=== PATIENT | female | born 1970 | race Caucasian/White ===

== ENCOUNTER 2017-07-09 12:42 | Emergency (ER) | payer MEDICARE ==
[2013-09-18 18:01] VITALS: BMI 43.3
[~2017-07-09 12:42] MED LIST: ACETAMINOPHEN500 M1 PO; ALBUTEROL2.5 MG/3 M IH; AMITRIPTYLINE H50 MG PO; BACTRIM DS TABL1 TAB PO; DEPAKOTE250 MG PO; DULCOLAX10 MG/SUPP RC; IMODIUM2 MG; IMODIUM2 MG PO; K-DUR20 MEQ PO; KLONOPIN0.5 MG PO; LEVAQUIN250 MG PO; LOMOTIL TABLET1 TAB PO; LOPRESSOR25 MG PO; LOVENOX40 MG/0.4 SQ; NAPROSYN500 MG PO; NYSTATIN-TRIAMC15 GM TOPICAL; PRAVACHOL20 MG PO; PROTONIX40 MG PO; PROZAC10 MG PO; RIFADIN300 MG PO; SENOKOT-S TABLE1 TAB PO; ZYVOX PO
== END 2017-07-09 15:19 | disposition home or self-care (01) ==
LOC: D.ER 12:42
DX: J20.9 Acute bronchitis, unspecified (principal); J06.9 Acute upper respiratory infection, unspecified

== ENCOUNTER → 2018-03-23 12:34 | Outpatient (CLI) | payer MEDICARE ==
[2013-09-18 18:01] VITALS: BMI 43.3
[~2018-03-23 12:34] MED LIST changes: +BREO ELLIPTA 11 EACH INH; +BRIO; +CYMBALTA60 MG PO; +DESERYL50 M2 PO; +DEXILANT60 MG PO; +IBUPROFEN800 MG PO; +KEPPRA500 MG PO; +KLONOPIN1 MG PO; +LEVAQUIN750 MG PO; +LOMOTIL 2.5-0.1 EAC1 PO; +MYCELEX TROCHE10 MG PO; +SPIRIVA RESPIMAT4 G1; +SPIRIVA18 MCG INH; +VENTOLIN HFA18 GM INH; +ZANAFLEX4 MG PO; +ZOFRAN8 MG PO
[2018-04-04 13:48] VITALS: BMI 43.2
== END | disposition home or self-care (01) ==
LOC: D.RT 12:34
DX: J45.909 Unspecified asthma, uncomplicated (principal); J84.9 Interstitial pulmonary disease, unspecified

== ENCOUNTER 2018-03-23 13:35 | Emergency (ER) | payer MEDICARE ==
[~2018-03-23] VITALS: Ht 165.1 cm; Wt 117.9 kg
[~2018-03-23 13:35] MED LIST changes: -BREO ELLIPTA 11 EACH INH; -BRIO; -CYMBALTA60 MG PO; -DESERYL50 M2 PO; -DEXILANT60 MG PO; -IBUPROFEN800 MG PO; -KEPPRA500 MG PO; -KLONOPIN1 MG PO; -LEVAQUIN750 MG PO; -LOMOTIL 2.5-0.1 EAC1 PO; -MYCELEX TROCHE10 MG PO; -SPIRIVA RESPIMAT4 G1; -SPIRIVA18 MCG INH; -VENTOLIN HFA18 GM INH; -ZANAFLEX4 MG PO; -ZOFRAN8 MG PO
[2018-03-23 13:56] VITALS: BP 160/86; Ht 165.1 cm; Wt 117.9 kg
[2018-03-23] MEDS ORDERED: KEPPRA500 MG PO (14:00)
[2018-03-23 15:02] LABS: BASOPHILS 0.4 % (0-2); EOSINOPHILS 0.3 % (0-7); HEMATOCRIT 34.9 % (36.0-48.0); HEMOGLOBIN 11.6 g/dL (12-16); IMMATURE GRANULOCYTES 0.4 % (0-5); LYMPHOCYTES 25.1 % (15-50); MCH 30.4 pg (26.0-34.0); MCHC 33.2 g/dL (31.0-37.0); MCV 91.4 fL (80.0-100.0); MEAN PLATELET VOLUME 9.7 fL (7.4-10.4); NEUTROPHILS 68.8 % (40-80); PLATELET COUNT 319 10x3/uL (130-400); RBC 3.82 10x6/uL (4.00-5.40); RDW 13.9 % (11.5-14.5)
[2018-03-23 15:34] LABS: ALBUMIN 3.4 g/dL (3.4-5.0); ALKALINE PHOSPHATASE 87 U/L (46-116); ALT (SGPT) 26 U/L (10-68); AMYLASE - SERUM 29 U/L (25-115); BILIRUBIN - TOTAL 0.29 mg/dL (0.2-1.3); CALC OSMOLALITY 282 mosm/kg (275-300); CALCIUM 8.6 mg/dL (8.5-10.1); CARBON DIOXIDE 27.1 mmol/L (21.0-32.0); CHLORIDE - SERUM 105 mmol/L (98-107); CREATININE - SERUM 0.6 mg/dL (0.6-1.3); GLUCOSE 117 mg/dL (74-106); LIPASE 82 U/L (73-393); POTASSIUM - SERUM 3.7 mmol/L (3.5-5.1); SODIUM 141 mmol/L (136-145); UREA NITROGEN 15 mg/dL (7-18); eGFR NON AFRICAN AMERICAN > 90 mL/min (90-120)
[2018-03-23 15:52] LABS: APPEARANCE CLEAR (CLEAR); COLOR YELLOW (YELLOW); SPECIFIC GRAVITY 1.005 (1.005-1.020)
[2018-03-23 15:53] LABS: BACTERIA FEW /hpf (NONE SEEN); BILIRUBIN NEGATIVE (NEGATIVE); EPITHELIAL CELLS 0-5 /hpf (0-5); GLUCOSE NEGATIVE (NEGATIVE); KETONE MODERATE mg/dL (NEGATIVE); NITRITE NEGATIVE (NEGATIVE); PROTEIN TRACE mg/dL (NEGATIVE); RED CELLS - URINE 0-5 /hpf (0-5); UROBILINOGEN NORMAL (NORMAL); WHITE CELLS - URINE 0-5 /hpf (0-5)
[2018-03-23] MEDS ORDERED: ZOFRAN8 MG PO (16:50)
[2018-03-23] MEDS ORDERED: LOMOTIL 2.5-0.1 EAC1 PO (16:50)
== END 2018-03-23 17:31 | disposition home or self-care (01) ==
LOC: D.ER 13:35
PROVIDERS: Family Medicine
DX: A08.4 Viral intestinal infection, unspecified (principal); R51 Headache; G40.909 Epilepsy, unspecified, not intractable, without status epilepticus; K21.9 Gastro-esophageal reflux disease without esophagitis

== ENCOUNTER → 2018-03-28 08:26 | Outpatient (CLI) | payer MEDICARE ==
[2018-03-23 13:56] VITALS: BMI 43.3
[~2018-03-28 08:26] MED LIST changes: +BREO ELLIPTA 11 EACH INH; +BRIO; +CYMBALTA60 MG PO; +DESERYL50 M2 PO; +DEXILANT60 MG PO; +IBUPROFEN800 MG PO; +KEPPRA500 MG PO; +KLONOPIN1 MG PO; +LEVAQUIN750 MG PO; +LOMOTIL 2.5-0.1 EAC1 PO; +MYCELEX TROCHE10 MG PO; +SPIRIVA RESPIMAT4 G1; +SPIRIVA18 MCG INH; +VENTOLIN HFA18 GM INH; +ZANAFLEX4 MG PO; +ZOFRAN8 MG PO
[2018-04-04 13:48] VITALS: BMI 43.2
== END | disposition home or self-care (01) ==
LOC: D.CT 03-23 14:00 → D.MRI 08:26
DX: S83.232A Complex tear of medial meniscus, current injury, left knee, initial encounter (principal); X58.XXXA Exposure to other specified factors, initial encounter; J84.9 Interstitial pulmonary disease, unspecified

== ENCOUNTER 2018-04-02 18:29 | Inpatient (IN) | payer MEDICARE ==
[~2018-04-02] VITALS: Ht 165.1 cm; Wt 117.9 kg
--- NOTE | ~2018-04-02 | MORECARE ---
CASE MANAGEMENT DISCHARGE SUMMARY PATIENT: JETT WOLFF UNIT: [id number] ADM DATE: 04/02/18 AGE: 47 : 74 SEX: F ROOM/BED: D.2229 AUTHOR: ARANZA,DOC PHYSICIAN: REFERRING PHYSICIAN: ILDEFONSO BRADFORD MD DATE OF SERVICE: 04/07/18 Discharge Plan Patient Name: JETT WOLFF Facility: [facility]:[place] : 1970 Planned Disposition: Home Anticipated Discharge Date: Discharge Date: Expected LOS: Initial Reviewer: [email or web address] Initial Review Date: 04/05/2018 Generated: 04/07/18 1:10 pm Comments DCP- Discharge Planning Updated by [email or web address]: Jaky Silva on 04/07/18 11:[address] Patient Name: JETT WOLFF Encounter No: [id number] : 1970 Primary Insurance: MEDICARE A & B Anticipated DC Date: Planned Disposition: Home External Planned Provider: : DCP follow-up note: Patient in agreement with discharge plan. States her she will call family for a ride home, states probably her sister will take her home. Declines need for home health. She has been on room air oxygen overnight. No needs identified. No changes to plan. Case management will follow and assist as needed. Jaky Silva DCP- Discharge Planning Updated by [email or web address]: Jaky Silva on 04/05/18 9:[address] Patient Name: JETT WOLFF Admission Status: ER Accout number: [id number] Admission Date: 04-02-2018 : 1970 Admission Diagnosis: Attending: ILDEFONSO BRADFORD Current LOS: 3 Anticipated DC Date: Planned Disposition: Home Primary Insurance: MEDICARE A & B Discharge Planning Comments: CM met with patient, she is alone in the room. States she lives alone. States she is independent with all ADL's. States she does not drive, her sister or mother drives her where she needs to go. States either sister or mother will take her home on discharge. I discussed availability of DME and HHS and she declines need for either one at this time. CM will continue to follow and assist with discharge planning/needs. Medical Records Administrator: Jaky Silva DCPIA - Discharge Planning Initial Assessment Updated by [email or web address]: Jaky Silva on 04/05/18 10:24 am * Is the patient Alert and Oriented? Yes * How many steps to enter\exit or inside your home? * PCP Dr. Interiano * Pharmacy [facility] * Preadmission Environment Home Alone * ADLs Independent * Equipment None * List name and contact numbers for known caregivers / representatives who currently or will assist patient after discharge: Gisel - mother - [phone] Xochilt - sister - unknown number * Verbal permission to speak to the caregivers and representatives has been obtained from the patient. Yes * Community resources currently utilized None * Additional services required to return to the preadmission environment? No * Can the patient safely return to the preadmission environment? Yes * Has this patient been hospitalized within the prior 30 days at any hospital? No Last DP export: 04/05/18 9:29 a Patient Name: JETT WOLFF Page [id number] at 1210 All edits/amendments must be made on the electronic document DICTATION DATE: 04/07/18 1210 MICROSYSTEMS ENGINEER: WADE 04/07/18 1210 RPT#: [id number] DC DATE: STATUS: ADM IN [facility] [address] [place] [address] END OF REPORT
--- NOTE | ~2018-04-02 | MORECARE ---
CASE MANAGEMENT DISCHARGE SUMMARY PATIENT: JETT WOLFF UNIT: [id number] ADM DATE: 04/02/18 AGE: 47 : 74 SEX: F ROOM/BED: D.2229 AUTHOR: ARANZA,DOC PHYSICIAN: REFERRING PHYSICIAN: ILDEFONSO BRADFORD MD DATE OF SERVICE: 04/05/18 Discharge Plan Patient Name: JETT WOLFF Facility: [facility]:[place] : 1970 Planned Disposition: Home Anticipated Discharge Date: Discharge Date: Expected LOS: Initial Reviewer: [email or web address] Initial Review Date: 04/05/2018 Generated: 04/05/18 11:29 am Comments DCP- Discharge Planning Updated by [email or web address]: Jaky Silva on 04/05/18 9:[address] Patient Name: JETT WOLFF Admission Status: ER Accout number: [id number] Admission Date: 04-02-2018 : 1970 Admission Diagnosis: Attending: ILDEFONSO BRADFORD Current LOS: 3 Anticipated DC Date: Planned Disposition: Home Primary Insurance: MEDICARE A & B Discharge Planning Comments: CM met with patient, she is alone in the room. States she lives alone. States she is independent with all ADL's. States she does not drive, her sister or mother drives her where she needs to go. States either sister or mother will take her home on discharge. I discussed availability of DME and HHS and she declines need for either one at this time. CM will continue to follow and assist with discharge planning/needs. Chronometer Tester: Jaky Silva DCPIA - Discharge Planning Initial Assessment Updated by [email or web address]: Jaky Silva on 04/05/18 10:24 am * Is the patient Alert and Oriented? Yes * How many steps to enter\exit or inside your home? * PCP Dr. Interiano * Pharmacy [facility] * Preadmission Environment Home Alone * ADLs Independent * Equipment None * List name and contact numbers for known caregivers / representatives who currently or will assist patient after discharge: Gisel - mother - [phone] Xochilt - sister - unknown number * Verbal permission to speak to the caregivers and representatives has been obtained from the patient. Yes * Community resources currently utilized None * Additional services required to return to the preadmission environment? No * Can the patient safely return to the preadmission environment? Yes * Has this patient been hospitalized within the prior 30 days at any hospital? No Patient Name: JETT WOLFF Page [id number] at 1029 All edits/amendments must be made on the electronic document DICTATION DATE: 04/05/18 1028 SERVICE BAR CASHIER: WADE 04/05/18 1028 RPT#: [id number] DC DATE: STATUS: ADM IN [facility] [address] [place] [address] END OF REPORT
--- NOTE | ~2018-04-02 | MORECARE ---
CASE MANAGEMENT DISCHARGE SUMMARY PATIENT: JETT WOLFF UNIT: [id number] ADM DATE: 04/02/18 AGE: 47 : 74 SEX: F ROOM/BED: D.2229 AUTHOR: ARANZADOC PHYSICIAN: REFERRING PHYSICIAN: ILDEFONSO BRADFORD MD DATE OF SERVICE: 04/08/18 Discharge Plan Patient Name: JETT WOLFF Facility: [facility]:[place] : 1970 Planned Disposition: Home Anticipated Discharge Date: Discharge Date: 04/07/2018 Expected LOS: 0 Initial Reviewer: [email or web address] Initial Review Date: 04/05/2018 Generated: 04/08/18 11:21 am Comments DCP- Discharge Planning Updated by [email or web address]: Jaky Silva on 04/07/18 11:[address] Patient Name: JETT WOLFF Encounter No: [id number] : 1970 Primary Insurance: MEDICARE A & B Anticipated DC Date: Planned Disposition: Home External Planned Provider: : DCP follow-up note: Patient in agreement with discharge plan. States her she will call family for a ride home, states probably her sister will take her home. Declines need for home health. She has been on room air oxygen overnight. No needs identified. No changes to plan. Case management will follow and assist as needed. Jaky Silva DCP- Discharge Planning Updated by [email or web address]: Jaky Silva on 04/05/18 9:[address] Patient Name: JETT WOLFF Admission Status: ER Accout number: [id number] Admission Date: 04-02-2018 : 1970 Admission Diagnosis: Attending: ILDEFONSO BRADFORD Current LOS: 3 Anticipated DC Date: Planned Disposition: Home Primary Insurance: MEDICARE A & B Discharge Planning Comments: CM met with patient, she is alone in the room. States she lives alone. States she is independent with all ADL's. States she does not drive, her sister or mother drives her where she needs to go. States either sister or mother will take her home on discharge. I discussed availability of DME and HHS and she declines need for either one at this time. CM will continue to follow and assist with discharge planning/needs. [place] Sander: Jaky Garciaell DCPIA - Discharge Planning Initial Assessment Updated by [email or web address]: Jaky Silva on 04/05/18 10:24 am * Is the patient Alert and Oriented? Yes * How many steps to enter\exit or inside your home? 120 * PCP Dr. Interiano * Pharmacy [place] * Preadmission Environment Home Alone * ADLs Independent * Equipment None * List name and contact numbers for known caregivers / representatives who currently or will assist patient after discharge: Gisel - mother - [phone] Xochilt - sister - unknown number * Verbal permission to speak to the caregivers and representatives has been obtained from the patient. Yes * Community resources currently utilized None * Additional services required to return to the preadmission environment? No * Can the patient safely return to the preadmission environment? Yes * Has this patient been hospitalized within the prior 30 days at any hospital? No Last DP export: 04/07/18 11:10 a Patient Name: JETT WOLFF Page [id number] at 1021 All edits/amendments must be made on the electronic document DICTATION DATE: 04/08/18 1020 MEAT STOCKER: WADE 04/08/18 1020 RPT#: [id number] SD DATE:04/07/18 STATUS: DIS IN [facility] [address] [place] [address] END OF REPORT
[~2018-04-02 18:29] MED LIST changes: -BREO ELLIPTA 11 EACH INH; -BRIO; -CYMBALTA60 MG PO; -DESERYL50 M2 PO; -DEXILANT60 MG PO; -IBUPROFEN800 MG PO; -KLONOPIN1 MG PO; -LEVAQUIN750 MG PO; -MYCELEX TROCHE10 MG PO; -SPIRIVA RESPIMAT4 G1; -SPIRIVA18 MCG INH; -VENTOLIN HFA18 GM INH; -ZANAFLEX4 MG PO
[2018-04-02] MEDS ORDERED: BRIO (18:35)
[2018-04-02] MEDS ORDERED: SPIRIVA RESPIMAT4 G1 (18:35)
[2018-04-02 19:14] LABS: BASOPHILS 0.2 % (0-2); EOSINOPHILS 0.2 % (0-7); HEMATOCRIT 31.9 % (36.0-48.0); HEMOGLOBIN 10.5 g/dL (12-16); IMMATURE GRANULOCYTES 0.4 % (0-5); LYMPHOCYTES 7.6 % (15-50); MCH 30.2 pg (26.0-34.0); MCHC 32.9 g/dL (31.0-37.0); MCV 91.7 fL (80.0-100.0); MEAN PLATELET VOLUME 9.9 fL (7.4-10.4); MONOCYTES 5.3 % (2-11); NEUTROPHILS 86.3 % (40-80); PLATELET COUNT 256 10x3/uL (130-400); RBC 3.48 10x6/uL (4.00-5.40); WBC 5.5 10x3/uL (4.8-10.8)
[2018-04-02 19:35] LABS: ALBUMIN 3.1 g/dL (3.4-5.0); ALKALINE PHOSPHATASE 108 U/L (46-116); ALT (SGPT) 41 U/L (10-68); BILIRUBIN - TOTAL 0.33 mg/dL (0.2-1.3); CALC OSMOLALITY 277 mosm/kg (275-300); CALCIUM 8.2 mg/dL (8.5-10.1); CARBON DIOXIDE 29.4 mmol/L (21.0-32.0); CHLORIDE - SERUM 101 mmol/L (98-107); CREATININE - SERUM 0.8 mg/dL (0.6-1.3); GLUCOSE 108 mg/dL (74-106); POTASSIUM - SERUM 3.5 mmol/L (3.5-5.1); PROTEIN - SERUM 7.1 g/dL (6.4-8.2); SODIUM 140 mmol/L (136-145); UREA NITROGEN 8 mg/dL (7-18); eGFR NON AFRICAN AMERICAN 82 mL/min (90-120)
[2018-04-02 21:24] VITALS: BP 153/82
[2018-04-02 21:47] VITALS: BP 153/82; BMI 43.3
[2018-04-03] MEDS ORDERED: KEPPRA500 MG PO (02:38)
[2018-04-03] MEDS ORDERED: LOPRESSOR25 MG PO (02:39)
[2018-04-03] MEDS ORDERED: PRAVACHOL20 MG PO (02:40)
[2018-04-03] MEDS ORDERED: DESERYL50 M2 PO (02:40)
[2018-04-03] MEDS ORDERED: DEXILANT60 MG PO (02:41)
[2018-04-03] MEDS ORDERED: ZANAFLEX4 MG PO (02:41)
[2018-04-03] MEDS ORDERED: CYMBALTA60 MG PO (02:41)
[2018-04-03] MEDS ORDERED: KLONOPIN1 MG PO (02:42)
[2018-04-03] MEDS ORDERED: BREO ELLIPTA 11 EACH INH (02:44)
[2018-04-03] MEDS ORDERED: SPIRIVA18 MCG INH (02:45)
[2018-04-03] MEDS ORDERED: IBUPROFEN800 MG PO (02:46)
[2018-04-03] MEDS ORDERED: VENTOLIN HFA18 GM INH (02:46)
[2018-04-03] MEDS ORDERED: MYCELEX TROCHE10 MG PO (02:47)
[2018-04-03 05:03] VITALS: BP 129/70
[2018-04-03 05:49] LABS: BASOPHILS 0.1 % (0-2); EOSINOPHILS 0 % (0-7); HEMATOCRIT 32.8 % (36.0-48.0); HEMOGLOBIN 10.6 g/dL (12-16); IMMATURE GRANULOCYTES 0.4 % (0-5); LYMPHOCYTES 7.5 % (15-50); MCH 29.8 pg (26.0-34.0); MCHC 32.3 g/dL (31.0-37.0); MCV 92.1 fL (80.0-100.0); MEAN PLATELET VOLUME 10.3 fL (7.4-10.4); MONOCYTES 1.9 % (2-11); NEUTROPHILS 90.1 % (40-80); PLATELET COUNT 277 10x3/uL (130-400); RBC 3.56 10x6/uL (4.00-5.40); RDW 15.1 % (11.5-14.5)
[2018-04-03 05:55] LABS: CREATININE - SERUM 0.9 mg/dL (0.6-1.3)
[2018-04-03 08:43] VITALS: BP 105/57
[2018-04-03 12:38] VITALS: BP 138/75
[2018-04-03 16:50] VITALS: BP 147/84
[2018-04-03 20:47] VITALS: BP 145/85
[2018-04-04] VITALS (7 sets, daily range): BP systolic 106–143; BP diastolic 43–92; Ht 165.1 cm; Wt 117.9 kg
[2018-04-04 05:23] LABS: BASOPHILS 0 % (0-2); EOSINOPHILS 0 % (0-7); HEMATOCRIT 29.9 % (36.0-48.0); HEMOGLOBIN 9.7 g/dL (12-16); IMMATURE GRANULOCYTES 0.4 % (0-5); LYMPHOCYTES 23.1 % (15-50); MCH 30.2 pg (26.0-34.0); MCHC 32.4 g/dL (31.0-37.0); MCV 93.1 fL (80.0-100.0); MEAN PLATELET VOLUME 9.8 fL (7.4-10.4); MONOCYTES 6.2 % (2-11); NEUTROPHILS 70.3 % (40-80); PLATELET COUNT 258 10x3/uL (130-400); RBC 3.21 10x6/uL (4.00-5.40); RDW 15.8 % (11.5-14.5)
[2018-04-04 05:33] LABS: WBC 5.2 10x3/uL (4.8-10.8)
[2018-04-04 06:37] LABS: ALBUMIN 2.6 g/dL (3.4-5.0); ALKALINE PHOSPHATASE 88 U/L (46-116); ALT (SGPT) 33 U/L (10-68); BILIRUBIN - TOTAL 0.14 mg/dL (0.2-1.3); CALCIUM 7.6 mg/dL (8.5-10.1); CARBON DIOXIDE 27.2 mmol/L (21.0-32.0); CHLORIDE - SERUM 104 mmol/L (98-107); CREATININE - SERUM 0.7 mg/dL (0.6-1.3); GLUCOSE 136 mg/dL (74-106); PROTEIN - SERUM 6.1 g/dL (6.4-8.2); SODIUM 142 mmol/L (136-145); eGFR NON AFRICAN AMERICAN > 90 mL/min (90-120)
[2018-04-04 06:38] LABS: CALC OSMOLALITY 284 mosm/kg (275-300); UREA NITROGEN 12 mg/dL (7-18)
[2018-04-04 15:25] LABS: APPEARANCE CLEAR (CLEAR); BILIRUBIN NEGATIVE (NEGATIVE); COLOR YELLOW (YELLOW); GLUCOSE NEGATIVE (NEGATIVE); KETONE NEGATIVE (NEGATIVE); NITRITE NEGATIVE (NEGATIVE); PROTEIN NEGATIVE (NEGATIVE); SPECIFIC GRAVITY 1.015 (1.005-1.020); UROBILINOGEN NORMAL (NORMAL)
[2018-04-05 00:52] VITALS: BP 145/79
[2018-04-05 05:57] VITALS: BP 139/65
[2018-04-05 06:19] LABS: BASOPHILS 0.2 % (0-2); EOSINOPHILS 0.2 % (0-7); HEMATOCRIT 31.5 % (36.0-48.0); HEMOGLOBIN 9.9 g/dL (12-16); IMMATURE GRANULOCYTES 0.2 % (0-5); LYMPHOCYTES 32.7 % (15-50); MCH 29.8 pg (26.0-34.0); MCHC 31.4 g/dL (31.0-37.0); MCV 94.9 fL (80.0-100.0); MEAN PLATELET VOLUME 10.3 fL (7.4-10.4); MONOCYTES 9.9 % (2-11); NEUTROPHILS 56.8 % (40-80); PLATELET COUNT 254 10x3/uL (130-400); RBC 3.32 10x6/uL (4.00-5.40); RDW 15.7 % (11.5-14.5); WBC 4.1 10x3/uL (4.8-10.8)
[2018-04-05 07:08] LABS: ALBUMIN 2.5 g/dL (3.4-5.0); ALKALINE PHOSPHATASE 95 U/L (46-116); ALT (SGPT) 32 U/L (10-68); BILIRUBIN - TOTAL 0.32 mg/dL (0.2-1.3); CALCIUM 7.7 mg/dL (8.5-10.1); CARBON DIOXIDE 26.8 mmol/L (21.0-32.0); CHLORIDE - SERUM 105 mmol/L (98-107); CREATININE - SERUM 0.6 mg/dL (0.6-1.3); GLUCOSE 97 mg/dL (74-106); POTASSIUM - SERUM 4.1 mmol/L (3.5-5.1); PROTEIN - SERUM 5.9 g/dL (6.4-8.2); SODIUM 141 mmol/L (136-145); eGFR NON AFRICAN AMERICAN > 90 mL/min (90-120)
[2018-04-05 07:09] LABS: CALC OSMOLALITY 277 mosm/kg (275-300); UREA NITROGEN 5 mg/dL (7-18)
[2018-04-05 08:20] VITALS: BP 129/82
[2018-04-05 12:25] VITALS: BP 138/93
[2018-04-05 21:31] VITALS: BP 181/90
[2018-04-06 04:49] LABS: HEMATOCRIT 30.7 % (36.0-48.0); HEMOGLOBIN 9.9 g/dL (12-16); MCH 30.3 pg (26.0-34.0); MCHC 32.2 g/dL (31.0-37.0); MCV 93.9 fL (80.0-100.0); MEAN PLATELET VOLUME 9.8 fL (7.4-10.4); PLATELET COUNT 256 10x3/uL (130-400); RBC 3.27 10x6/uL (4.00-5.40); RDW 15.3 % (11.5-14.5); WBC 3.2 10x3/uL (4.8-10.8)
[2018-04-06 05:05] LABS: ALBUMIN 2.3 g/dL (3.4-5.0); ALKALINE PHOSPHATASE 101 U/L (46-116); ALT (SGPT) 33 U/L (10-68); BILIRUBIN - TOTAL 0.36 mg/dL (0.2-1.3); CALC OSMOLALITY 284 mosm/kg (275-300); CARBON DIOXIDE 29.9 mmol/L (21.0-32.0); CHLORIDE - SERUM 106 mmol/L (98-107); CREATININE - SERUM 0.7 mg/dL (0.6-1.3); GLUCOSE 100 mg/dL (74-106); POTASSIUM - SERUM 3.7 mmol/L (3.5-5.1); PROTEIN - SERUM 6.1 g/dL (6.4-8.2); SODIUM 144 mmol/L (136-145); UREA NITROGEN 6 mg/dL (7-18); eGFR NON AFRICAN AMERICAN > 90 mL/min (90-120)
[2018-04-06 05:22] LABS: BASOPHILS 1 % (0-2); LYMPHOCYTES 57 % (15-50); MONOCYTES 3 % (2-11); NEUTROPHILS 37 % (40-80); PLATELET ESTIMATE NORMAL
[2018-04-06 06:19] VITALS: BP 140/84
[2018-04-06 09:08] VITALS: BP 142/77
[2018-04-06 12:13] VITALS: BP 136/74
[2018-04-06 17:07] VITALS: BP 130/63
[2018-04-06 20:45] VITALS: BP 127/65
[2018-04-07 01:09] VITALS: BP 134/64
[2018-04-07 04:49] VITALS: BP 145/70
[2018-04-07 04:54] LABS: BASOPHILS 0.6 % (0-2); EOSINOPHILS 0.6 % (0-7); HEMATOCRIT 31.3 % (36.0-48.0); HEMOGLOBIN 9.9 g/dL (12-16); IMMATURE GRANULOCYTES 0.3 % (0-5); LYMPHOCYTES 56.1 % (15-50); MCH 29.6 pg (26.0-34.0); MCHC 31.6 g/dL (31.0-37.0); MCV 93.4 fL (80.0-100.0); MEAN PLATELET VOLUME 9.8 fL (7.4-10.4); MONOCYTES 11.6 % (2-11); NEUTROPHILS 30.8 % (40-80); PLATELET COUNT 271 10x3/uL (130-400); RBC 3.35 10x6/uL (4.00-5.40); RDW 14.8 % (11.5-14.5); WBC 3.2 10x3/uL (4.8-10.8)
[2018-04-07 05:21] LABS: ALBUMIN 2.4 g/dL (3.4-5.0); ALKALINE PHOSPHATASE 94 U/L (46-116); ALT (SGPT) 32 U/L (10-68); BILIRUBIN - TOTAL 0.34 mg/dL (0.2-1.3); CALCIUM 8.4 mg/dL (8.5-10.1); CARBON DIOXIDE 31.7 mmol/L (21.0-32.0); CHLORIDE - SERUM 104 mmol/L (98-107); CREATININE - SERUM 0.6 mg/dL (0.6-1.3); GLUCOSE 100 mg/dL (74-106); POTASSIUM - SERUM 3.5 mmol/L (3.5-5.1); PROTEIN - SERUM 6.3 g/dL (6.4-8.2); SODIUM 141 mmol/L (136-145); eGFR NON AFRICAN AMERICAN > 90 mL/min (90-120)
[2018-04-07 05:25] LABS: CALC OSMOLALITY 278 mosm/kg (275-300); UREA NITROGEN 8 mg/dL (7-18)
[2018-04-07 08:33] VITALS: BP 157/94
[2018-04-07] MEDS ORDERED: LEVAQUIN750 MG PO (11:49)
[2018-04-07 14:35] VITALS: BP 114/62
== END 2018-04-07 14:00 | disposition home or self-care (01) | DRG 194 ==
LOC: D.ER 18:29 → D.MS 20:12
PROVIDERS: Family Medicine; Internal Medicine Nephrology
DX: J09.X1 Influenza due to identified novel influenza A virus with pneumonia (principal); Z68.41 Body mass index [BMI] 40.0-44.9, adult; J12.9 Viral pneumonia, unspecified; J11.00 Influenza due to unidentified influenza virus with unspecified type of pneumonia; G40.909 Epilepsy, unspecified, not intractable, without status epilepticus; E87.6 Hypokalemia; D64.9 Anemia, unspecified; E66.01 Morbid (severe) obesity due to excess calories; K21.9 Gastro-esophageal reflux disease without esophagitis; F32.9 Major depressive disorder, single episode, unspecified

== ENCOUNTER → 2018-06-02 07:19 | Day surgery (SDC) | payer MEDICARE ==
[2018-06-01 09:17] LABS: HEMATOCRIT 41.2 % (36.0-48.0); HEMOGLOBIN 13.4 g/dL (12-16); MCH 30.3 pg (26.0-34.0); MCHC 32.5 g/dL (31.0-37.0); MCV 93.2 fL (80.0-100.0); MEAN PLATELET VOLUME 9.5 fL (7.4-10.4); RBC 4.42 10x6/uL (4.00-5.40); RDW 14.5 % (11.5-14.5); WBC 5.3 10x3/uL (4.8-10.8)
[2018-06-01 09:27] LABS: ANION GAP 11.7 mmol/L (8-16); CALCIUM 8.8 mg/dL (8.5-10.1); CARBON DIOXIDE 30.5 mmol/L (21.0-32.0); CREATININE - SERUM 0.9 mg/dL (0.6-1.3); POTASSIUM - SERUM 4.2 mmol/L (3.5-5.1)
[~2018-06-02] VITALS: Ht 165.1 cm; Wt 119.7 kg
[~2018-06-02 07:19] MED LIST changes: +BREO ELLIPTA 11 EACH INH; +BRIO; +CYMBALTA60 MG PO; +DESERYL50 M2 PO; +DEXILANT60 MG PO; +HYDROCODON-ACE1 EA10 PO; +IBUPROFEN800 MG PO; +KLONOPIN1 MG PO; +LEVAQUIN750 MG PO; +MYCELEX TROCHE10 MG PO; +SPIRIVA RESPIMAT4 G1; +SPIRIVA18 MCG INH; +VENTOLIN HFA18 GM INH; +ZANAFLEX4 MG PO
[2018-06-02 07:48] VITALS: BP 139/77; Ht 165.1 cm; Wt 119.7 kg
--- NOTE | 2018-06-02 12:06 | OP ---
PATIENT NAME: JETT WOLFF MEDICAL RECORD: [id number] :[birth year] LOCATION:[facility] ADMISSION DATE: SURGEON: GLO SCHMIDT MD DATE OF OPERATION: 06/02/2018 PREOPERATIVE DIAGNOSIS: Patellofemoral syndrome. POSTOPERATIVE DIAGNOSIS: Patellofemoral syndrome. PROCEDURES: Left knee arthroscopy with arthroscopic lateral release. SURGEON: Glo Schmidt MD ANESTHESIA: General. INTRAOPERATIVE COMPLICATIONS: None. 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 OPERATIVE SUMMARY IN DETAIL: After obtaining the appropriate preoperative orthopedic surgery consent as well as anesthetic consultation, evaluation, and clearance the patient was brought to the operating room and placed on the table in supine position. After general laryngeal mask airway was administered, tourniquet was placed on the proximal aspect of the left lower extremity. Left lower extremity was then prepped and draped in routine sterile fashion. The leg was elevated and exsanguinated, and tourniquet inflated to 350 mmHg. Routine inferolateral portal was established followed by superomedial portal and inferomedial portal. Diagnostic arthroscopy did reveal the patient to have patellofemoral syndrome. Fortunately, the weightbearing surface of the condyles were pristine as were the medial and lateral menisci, ACL. The trochlea, more laterally than medially, had chondromalacia. Gentle debridement of the trochlea was done. This was followed by using the Arthrex hook tip [place] system to release the lateral retinaculum from just below the vastus lateralis to the inferolateral portal. Having completed this, the knee was insufflated with 30 mL of 0.25% Marcaine with epinephrine and 40 mg of Depo-Medrol. Arthroscopy portals were closed in routine interrupted fashion using 4-0 Prolene. Sterile dressings were applied. Tourniquet was deflated. The patient was awakened and taken to the recovery room in stable condition. All final needle and sponge counts were correct. TRANSINT:[id number] Voice Confirmation ID: [id number] DOCUMENT ID: [id number] GLO SCHMIDT MD at 1206 CC: [id number] DICTATION DATE: 06/02/18 0957 FIELD SERVICE SPECIALIST: 06/02/18 1035 [facility] [address] [facility] [place], [facility]
== END | disposition home or self-care (01) ==
LOC: D.OPS 07:19 → D.PAN 10:00
PROVIDERS: Anesthesiology
DX: M22.2X2 Patellofemoral disorders, left knee (principal); J45.909 Unspecified asthma, uncomplicated; I49.9 Cardiac arrhythmia, unspecified; K21.9 Gastro-esophageal reflux disease without esophagitis; M19.90 Unspecified osteoarthritis, unspecified site; E66.01 Morbid (severe) obesity due to excess calories; Z68.41 Body mass index [BMI] 40.0-44.9, adult; Z86.14 Personal history of Methicillin resistant Staphylococcus aureus infection; E78.00 Pure hypercholesterolemia, unspecified; F41.0 Panic disorder [episodic paroxysmal anxiety]; G40.209 Localization-related (focal) (partial) symptomatic epilepsy and epileptic syndromes with complex partial seizures, not intractable, without status epilepticus; G47.00 Insomnia, unspecified; Z88.1 Allergy status to other antibiotic agents; Z88.8 Allergy status to other drugs, medicaments and biological substances; Z79.1 Long term (current) use of non-steroidal anti-inflammatories (NSAID); Z79.899 Other long term (current) drug therapy; Z01.812 Encounter for preprocedural laboratory examination

== ENCOUNTER 2018-09-19 20:34 | Emergency (ER) | payer MEDICARE ==
[~2018-09-19] VITALS: Ht 165.1 cm; Wt 120.0 kg
[2018-09-19 20:39] VITALS: Ht 165.1 cm; Wt 120.0 kg
[2018-09-19 21:36] LABS: BASOPHILS 0.2 % (0-2); EOSINOPHILS 0.4 % (0-7); HEMATOCRIT 35.2 % (36.0-48.0); HEMOGLOBIN 11.5 g/dL (12-16); IMMATURE GRANULOCYTES 0.3 % (0-5); MCH 31.1 pg (26.0-34.0); MCHC 32.7 g/dL (31.0-37.0); MCV 95.1 fL (80.0-100.0); MEAN PLATELET VOLUME 9.7 fL (7.4-10.4); NEUTROPHILS 77.1 % (40-80); PLATELET COUNT 329 10x3/uL (130-400); RDW 14.2 % (11.5-14.5); WBC 10.7 10x3/uL (4.8-10.8)
[2018-09-19 21:44] LABS: APTT 25.2 SECONDS (22.8-39.4); INR 0.94 (0.85-1.17); PROTIME 12.1 SECONDS (11.6-15.0)
[2018-09-19 21:50] LABS: ALBUMIN 3.1 g/dL (3.4-5.0); ALKALINE PHOSPHATASE 69 U/L (46-116); ALT (SGPT) 24 U/L (10-68); BILIRUBIN - TOTAL 0.23 mg/dL (0.2-1.3); CALC OSMOLALITY 280 mosm/kg (275-300); CALCIUM 8.2 mg/dL (8.5-10.1); CARBON DIOXIDE 29.5 mmol/L (21.0-32.0); CHLORIDE - SERUM 105 mmol/L (98-107); CREATININE - SERUM 0.7 mg/dL (0.6-1.3); GLUCOSE 105 mg/dL (74-106); POTASSIUM - SERUM 3.9 mmol/L (3.5-5.1); PROTEIN - SERUM 6.7 g/dL (6.4-8.2); SODIUM 141 mmol/L (136-145); UREA NITROGEN 13 mg/dL (7-18); eGFR NON AFRICAN AMERICAN > 90 mL/min (90-120)
[2018-09-19 23:17] VITALS: BP 146/87
== END 2018-09-19 23:19 | disposition home or self-care (01) ==
LOC: D.ER 20:34
PROVIDERS: Family Medicine
DX: G43.909 Migraine, unspecified, not intractable, without status migrainosus (principal)

== ENCOUNTER → 2018-10-03 09:31 | Outpatient (CLI) | payer MEDICARE ==
[2018-09-19 20:39] VITALS: BMI 44.0
== END | disposition home or self-care (01) ==
LOC: D.MRI 09-23 08:30
PROVIDERS: ATTEND Clinical Nurse Specialist Family Health
DX: M25.561 Pain in right knee (principal)

== ENCOUNTER → 2018-11-17 05:00 | Day surgery (SDC) | payer MEDICARE ==
[2018-11-15 09:47] LABS: HEMATOCRIT 35.6 % (36.0-48.0); HEMOGLOBIN 11.6 g/dL (12-16); MCH 31.1 pg (26.0-34.0); MCHC 32.6 g/dL (31.0-37.0); MCV 95.4 fL (80.0-100.0); MEAN PLATELET VOLUME 9.1 fL (7.4-10.4); RBC 3.73 10x6/uL (4.00-5.40); RDW 13.8 % (11.5-14.5); WBC 7.4 10x3/uL (4.8-10.8)
[2018-11-15 09:57] LABS: CALC OSMOLALITY 282 mosm/kg (275-300); CALCIUM 8.3 mg/dL (8.5-10.1); CARBON DIOXIDE 32.3 mmol/L (21.0-32.0); CHLORIDE - SERUM 103 mmol/L (98-107); CREATININE - SERUM 0.7 mg/dL (0.6-1.3); GLUCOSE 123 mg/dL (74-106); POTASSIUM - SERUM 3.7 mmol/L (3.5-5.1); SODIUM 141 mmol/L (136-145); UREA NITROGEN 16 mg/dL (7-18); eGFR NON AFRICAN AMERICAN > 90 mL/min (90-120)
[~2018-11-17] VITALS: Ht 165.1 cm; Wt 113.4 kg
[~2018-11-17 05:00] MED LIST changes: +FLUTICASONE PRO16 GM NASAL; +REXULTI1 MG PO
[2018-11-17 06:20] VITALS: BP 169/97; Ht 165.1 cm; Wt 113.4 kg
--- NOTE | 2018-11-17 10:39 | OP ---
PATIENT NAME: JETT WOLFF MEDICAL RECORD: [id number] :[birth year] LOCATION:[facility] ADMISSION DATE: SURGEON: GLO SCHMIDT MD DATE OF OPERATION: 11/17/2018 PREOPERATIVE DIAGNOSIS: Severe patellofemoral syndrome. POSTOPERATIVE DIAGNOSIS: Severe patellofemoral syndrome. PROCEDURE: Arthroscopic lateral release of the right knee. SURGEON: Glo Schmidt MD. CAR DISPATCHER: Miguel Angel Carbajal. INTRAOPERATIVE COMPLICATIONS: None. SUMMARY OF PATHOLOGIC FINDINGS: The patient was indeed found to have severe patellofemoral disorder. Medial meniscus was in overall good condition without evidence of tearing as thought might be seen on the MRI; however, it was not. OPERATIVE SUMMARY IN DETAIL: After obtaining the appropriate preoperative orthopedic surgery consent as well as anesthetic consultation, evaluation and clearance, the patient was brought to the operating room and placed on the operating table in supine position. After adequate general laryngeal mask airway was administered, tourniquet was placed about the proximal aspect of the right lower extremity. Right lower extremity was then prepped and draped in routine sterile fashion. The leg was elevated and exsanguinated, tourniquet was inflated to 350 mmHg. Routine inferolateral port was established followed by superior medial portal and inferomedial portal. Diagnostic arthroscopy was performed. Medial menisci were in overall good condition as was the lateral menisci. In fact, the chondral surfaces were well except for the lateral facet of patella that had grade I and II chondromalacia without substantial kissing lesion on the lateral trochlear groove. Having completed the diagnostic arthroscopy, the Arthrex hook tip ablation system was put in and a lateral release was performed from just below the vastus lateralis to the inferior lateral portal, resulting in excellent lateral release. Having completed this, the knee was insufflated with 30 cc of 0.25% Marcaine with epinephrine. Arthroscopy portals were closed in routine interrupted fashion using 4-0 Prolene. Sterile dressings were applied. The patient was awakened and taken to recovery room in stable condition after the tourniquet was deflated. All final needle and sponge counts were correct. TRANSINT:[id number] Voice Confirmation ID: [id number] DOCUMENT ID: [id number] GLO SCHMIDT MD at 1039 CC: [id number] DICTATION DATE: 11/17/1848 INTERNET MERCHANT: 11/17/18 0908 REG [facility] [address] [place] [address]
--- NOTE | 2018-11-17 13:41 | NUR ---
1100. ALL DC CRITERIA MET. DC'D HOME. TAKEN OUT VIA W/C AND ASSISTED TO CAR WITH FAMILY. ADVISED TO CALL OR COME BACK IF ANY PROBLEM.
== END | disposition home or self-care (01) ==
LOC: D.OPS 05:00 → D.PAN 11:00
PROVIDERS: Anesthesiology; ATTEND Orthopaedic Surgery
DX: M22.2X1 Patellofemoral disorders, right knee (principal); Z01.812 Encounter for preprocedural laboratory examination

== ENCOUNTER 2018-11-18 16:15 | Emergency (ER) | payer MEDICARE ==
[~2018-11-18] VITALS: Ht 165.1 cm; Wt 118.2 kg
[2018-11-18 16:16] VITALS: Ht 165.1 cm; Wt 118.2 kg
[2018-11-18 17:46] VITALS: BP 127/79
== END 2018-11-18 17:47 ==
LOC: D.ER 16:15
DX: M25.561 Pain in right knee (principal); K21.9 Gastro-esophageal reflux disease without esophagitis

== ENCOUNTER 2018-12-12 08:55 | Day surgery (SDC) | payer MEDICARE ==
[~2018-12-12] VITALS: Ht 165.1 cm; Wt 113.4 kg
[2018-12-12 09:19] LABS: BASOPHILS 0.6 % (0-2); EOSINOPHILS 2.3 % (0-7); HEMOGLOBIN 11.5 g/dL (12-16); IMMATURE GRANULOCYTES 0.2 % (0-5); LYMPHOCYTES 44.6 % (15-50); MCH 30.7 pg (26.0-34.0); MCHC 32.9 g/dL (31.0-37.0); MCV 93.6 fL (80.0-100.0); MEAN PLATELET VOLUME 8.8 fL (7.4-10.4); MONOCYTES 5.7 % (2-11); NEUTROPHILS 46.6 % (40-80); PLATELET COUNT 368 10x3/uL (130-400); RBC 3.74 10x6/uL (4.00-5.40); WBC 5.3 10x3/uL (4.8-10.8)
[2018-12-12 10:18] VITALS: BP 141/90; Ht 165.1 cm; Wt 113.4 kg
[2018-12-12] MEDS ORDERED: HYDROCODON-ACE1 EA10 PO (13:19)
--- NOTE | 2018-12-12 13:40 | NUR ---
PT SITTING UP IN BED TOLERATING ICE CHIPS. PT STILL C/O PAIN WILL REPOSITION AND WAIT TO SEE IF DILAUDID THAT WAS GIVEN WORKS.
--- NOTE | 2018-12-12 14:54 | OP ---
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 PROCEDURES: 1. Arthroscopic I&D of the right knee. 2. Closure of synovial cutaneous fistula. SURGEON: Glo Schmidt MD ANESTHESIA: General. INTRAOPERATIVE COMPLICATIONS: None. SUMMARY OF PATHOLOGIC FINDINGS: The patient did indeed have a small synovial cutaneous fistula, which is unknown problem, occasionally with lateral releases. There was no evidence of intra-articular infection and only mild amount of blood clots were noted at the time of knee arthroscopy. These were removed. OPERATIVE SUMMARY IN DETAIL: After obtaining the appropriate preoperative orthopedic surgery consent as well as anesthetic consultation, evaluation, and clearance, the patient was brought to the operating room and placed on the operating table in the supine position. After adequate general laryngeal mask airway was administered, tourniquet was placed about the proximal aspect of the right lower extremity. Note, it was not used during this case. The right lower extremity was then prepped and draped in routine sterile fashion. Previously utilized area of synovial cutaneous fistula was reopened. Scope was then placed through it. The knee was insufflated and direct arthroscopic visualization of the entire knee was carried out. No evidence of infection. No evidence of anything but residual blood clots was noted. At this point, the knee was washed out with total of 3 liters. It was then drained and the synovial cutaneous fistula was closed with a 2-0 Prolene in a deep fjyglf-be-oevdl fashion with a simple suture in between. The knee was taken through range of motion and there was no leakage. At this point, the superior and medial portals were also closed in a csgkig-wt-sbzhq with 4-0 Prolene. Sterile dressings were applied. The patient was awakened and taken to the recovery room in stable condition. All final needle and sponge counts were correct. TRANSINT:[id number] Voice Confirmation ID: [id number] DOCUMENT ID: [id number] OPERATIVE REPORT [id number] JETT WOLFF MD, GLO FREGOSO at 1454 CC: [id number] DICTATION DATE: 12/12/18 1404 MOLDER LABELS: 12/12/18 1446 [facility] [address] [facility] [place], [facility]901
--- NOTE | 2018-12-12 15:19 | NUR ---
1500 IV REMOVED AND DRESSING APPLIED 1515 ASSISTED WITH GETTING DRESSED AND UP TO CHAIR
== END 2018-12-12 15:15 | disposition home or self-care (01) ==
LOC: D.OPS 08:55 → D.PAN 11:55 → D.OPS 13:30 → D.PAN 13:30 → D.OPS 15:15
PROVIDERS: Anesthesiology; ATTEND Orthopaedic Surgery
DX: M25.161 Fistula, right knee (principal); Z98.890 Other specified postprocedural states; Z01.812 Encounter for preprocedural laboratory examination

== ENCOUNTER → 2019-03-27 09:17 | Outpatient (CLI) | payer MEDICARE ==
[2018-12-12 10:18] VITALS: BMI 155.0
== END | disposition home or self-care (01) ==
LOC: D.MRI 03-14 13:30
PROVIDERS: ATTEND Clinical Nurse Specialist Family Health
DX: M25.561 Pain in right knee (principal)

== ENCOUNTER → 2019-12-11 15:29 | Outpatient (CLI) | payer MEDICARE ==
[2018-12-12 10:18] VITALS: BMI 155.0
[2019-12-11 15:59] LABS: BASOPHILS 0.6 % (0-2); EOSINOPHILS 1.1 % (0-7); HEMATOCRIT 37.7 % (36.0-48.0); IMMATURE GRANULOCYTES 0.3 % (0-5); LYMPHOCYTES 39.8 % (15-50); MCH 28.4 pg (26.0-34.0); MCHC 31.8 g/dL (31.0-37.0); MCV 89.3 fL (80.0-100.0); MEAN PLATELET VOLUME 9.6 fL (7.4-10.4); MONOCYTES 5.6 % (2-11); NEUTROPHILS 52.6 % (40-80); PLATELET COUNT 384 10x3/uL (130-400); RBC 4.22 10x6/uL (4.00-5.40); RDW 13.8 % (11.5-14.5); WBC 7.3 10x3/uL (4.8-10.8)
== END | disposition home or self-care (01) ==
LOC: D.LAB 15:29
PROVIDERS: ATTEND Internal Medicine Pulmonary Disease
DX: Z11.59 Encounter for screening for other viral diseases (principal)

== ENCOUNTER → 2020-01-18 14:23 | Outpatient (CLI) | payer MEDICARE ==
[2018-12-12 10:18] VITALS: BMI 155.0
== END | disposition home or self-care (01) ==
LOC: D.LAB 14:23
PROVIDERS: ATTEND Internal Medicine Pulmonary Disease
DX: J45.909 Unspecified asthma, uncomplicated (principal)